=== PATIENT | male | born 1980 | race Hispanic/Latino ===

== ENCOUNTER 2019-10-31 12:37 | Outpatient (CLI) | payer OTHER ==
--- NOTE | 2019-10-31 13:06 | RAD ---
Radiograph abdomen 2 views: 10/31/2019 HISTORY: 39-year-old male with several months of left-sided abdominal pain flank pain FINDINGS: No evidence of pneumoperitoneum. Except for a couple of tiny foci of intraluminal gas in the region o f the splenic flexure, there is absence of bowel gas. No definite tract calculus is identified. No evidence of organomegaly. No excessive distention of the stomach. IMPRESSION: 1. Cannot evaluate bowel because of almost complete lack of bowel gas. 2. No urolithiasis identified
== END 2019-10-31 12:38 | disposition home or self-care (01) ==
LOC: BICRAD 12:37
PROVIDERS: ATTEND Family Medicine
DX: R10.9 Unspecified abdominal pain (principal)
CPT/HCPCS: 74019